=== PATIENT | male | born 1990 | race Caucasian/White ===

== ENCOUNTER 2017-06-21 17:30 | Emergency (ER) | payer BC ==
[~2017-06-21] VITALS: Ht 182.9 cm; Wt 107.7 kg
[2017-06-21 17:38] VITALS: TEMP 97.7
[2017-06-21 18:26] LABS: BASO # 0.1 (0.0-0.2); BASO % 0.8 % (0.0-2.0); EOS # 0.4 (0.0-0.7); EOS % 3.5 % (0-4.0); GRAN # 8.6 (1.4-6.5); GRAN % 70.6 % (42.2-75.2); HEMATOCRIT 42.2 % (42.0-52.0); HEMOGLOBIN 14.4 g/dl (13.5-18.0); LYMPH # 2.2 (1.2-3.4); LYMPH % 17.8 % (20.0-51.0); MEAN CELL VOLUME 87 fl (80.0-100.0); MEAN CORPUSCULAR HEMOGLOBIN 30 pg (27.0-31.0); MEAN CORPUSCULAR HGB CONC 34 g/dl (33.0-37.0); MEAN PLATELET VOLUME 10.6 fl (7.4-10.4); MONO # 0.8 (0.1-0.6); MONO % 6.8 % (1.7-9.3); PLATELET COUNT 306 K/mm3 (130-400); RED BLOOD COUNT 4.87 M/mm3 (4.20-5.60); WHITE BLOOD COUNT 12.1 K/mm3 (4.8-10.8)
[2017-06-21 19:37] LABS: ADJUSTED CALCIUM 9.2 mg/dL (8.4-10.2); ALBUMIN 4.5 gm/dL (3.5-5.0); BILIRUBIN,TOTAL 0.4 mg/dL (0.0-1.0); C-REACTIVE PROTEIN 1.3 mg/dL (0.0-0.9); CALCIUM 9.6 mg/dL (8.4-10.2); CREATININE, serum 0.92 mg/dL (0.66-1.25); POTASSIUM 4.8 mmol/L (3.4-5.0); TOTAL PROTEIN 7.5 gm/dL (6.4-8.2)
[2017-06-21 20:03] LABS: COLLECTION METHOD CLEAN CATCH
[2017-06-21 20:09] LABS: MUCOUS Present /lpf; PH 7 (5-8); SQUAMOUS EPITHELIAL 0-2 /hpf; URINE APPEARANCE Hazy; URINE BACTERIA Rare /hpf; URINE BILIRUBIN Negative (NEGATIVE); URINE BLOOD Negative (NEGATIVE); URINE COLOR Yellow; URINE GLUCOSE Negative (NEGATIVE); URINE KETONE 1+ (NEGATIVE); URINE LEUKOCYTE ESTERASE Negative (NEGATIVE); URINE PROTEIN(semi-quant) 1+ (NEGATIVE); URINE RBC 0-2 /hpf; URINE UROBILINOGEN >=4.0 mg/dL (NEGATIVE); URINE WBC 0-2 /hpf
[2017-06-21] MEDS ORDERED: NORCO 325 MG-51 TAB PO (21:10)
[2017-06-21 21:51] VITALS: BP 128/89; PULSE 88
== END 2017-06-21 21:25 | disposition home or self-care (01) ==
LOC: COL.ER 17:30 → EDSEX 17:49 → COL.ER 21:25
PROVIDERS: Emergency Medicine; Nurse Practitioner
DX: K40.90 Unilateral inguinal hernia, without obstruction or gangrene, not specified as recurrent (principal)
CPT/HCPCS: J1170; J2270; J2405; J7030; Q9967

== ENCOUNTER 2017-10-04 01:44 | Emergency (ER) | payer OTHER ==
[~2017-10-04] VITALS: Ht 182.9 cm; Wt 109.1 kg
[~2017-10-04 01:44] MED LIST: NORCO 325 MG-51 TAB PO
[2017-10-04 01:56] VITALS: TEMP 98.6
[2017-10-04] MEDS ORDERED: ALDACTONE50 MG PO (02:09)
[2017-10-04] MEDS ORDERED: ESTRACE2 MG PO (02:10)
[2017-10-04 03:05] LABS: BILIRUBIN,TOTAL 0.3 mg/dL (0.0-1.0); CALCIUM 9.3 mg/dL (8.4-10.2); CREATININE, serum 0.94 mg/dL (0.66-1.25); POTASSIUM 3.8 mmol/L (3.4-5.0); TOTAL PROTEIN 7.5 gm/dL (6.4-8.2)
[2017-10-04 03:08] LABS: C-REACTIVE PROTEIN 0.5 mg/dL (0.0-0.9)
[2017-10-04 03:26] LABS: COLLECTION METHOD CLEAN CATCH
[2017-10-04 03:31] LABS: MUCOUS Present /lpf; PH 5 (5-8); URINE APPEARANCE Hazy; URINE BACTERIA None Seen /hpf; URINE BILIRUBIN Negative (NEGATIVE); URINE BLOOD Negative (NEGATIVE); URINE COLOR Yellow; URINE GLUCOSE Negative (NEGATIVE); URINE KETONE Trace (NEGATIVE); URINE LEUKOCYTE ESTERASE Negative (NEGATIVE); URINE NITRATE Negative (NEGATIVE); URINE PROTEIN(semi-quant) Negative (NEGATIVE); URINE RBC 0-2 /hpf
[2017-10-04 03:38] LABS: BASO # 0.1 (0.0-0.2); BASO % 0.6 % (0.0-2.0); EOS # 0.2 (0.0-0.7); EOS % 1.5 % (0-4.0); GRAN # 8.1 (1.4-6.5); GRAN % 71.5 % (42.2-75.2); HEMATOCRIT 37.6 % (42.0-52.0); HEMOGLOBIN 13.1 g/dl (13.5-18.0); LYMPH # 2.3 (1.2-3.4); LYMPH % 20.4 % (20.0-51.0); MEAN CELL VOLUME 84 fl (80.0-100.0); MEAN CORPUSCULAR HEMOGLOBIN 29 pg (27.0-31.0); MEAN CORPUSCULAR HGB CONC 35 g/dl (33.0-37.0); MEAN PLATELET VOLUME 9.8 fl (7.4-10.4); MONO # 0.6 (0.1-0.6); MONO % 5.6 % (1.7-9.3); PLATELET COUNT 318 K/mm3 (130-400); RED BLOOD COUNT 4.49 M/mm3 (4.20-5.60); REDCELL DISTRIBUTION WIDTH-CV 11.5 % (11.5-14.5)
[2017-10-04 04:30] VITALS: BP 121/75; PULSE 61
== END 2017-10-04 04:30 | disposition home or self-care (01) ==
LOC: COL.ER 01:44
PROVIDERS: Emergency Medicine
DX: R10.33 Periumbilical pain (principal)
CPT/HCPCS: J1885; J2405; J7030; Q9967

== ENCOUNTER → 2017-10-22 | Outpatient (CLI) | payer OTHER ==
[~2017-10-22] MED LIST changes: +ALDACTONE50 MG PO; +ESTRACE2 MG PO
== END ==
LOC: COL.RAD 08:53
DX: R10.33 Periumbilical pain (principal)

== ENCOUNTER 2018-07-15 05:18 | Emergency (ER) | payer OTHER ==
[~2018-07-15] VITALS: Ht 182.9 cm; Wt 115.9 kg
[2018-07-15 05:21] VITALS: TEMP 97.5
[2018-07-15 05:43] LABS: BASO # 0.1 (0.0-0.2); BASO % 0.7 % (0.0-2.0); EOS # 0.2 (0.0-0.7); EOS % 1.9 % (0-4.0); GRAN # 6.7 (1.4-6.5); GRAN % 59.7 % (42.2-75.2); HEMATOCRIT 39.8 % (42.0-52.0); HEMOGLOBIN 13.7 g/dl (13.5-18.0); LYMPH # 3.4 (1.2-3.4); LYMPH % 30.2 % (20.0-51.0); MEAN CELL VOLUME 85 fl (80.0-100.0); MEAN CORPUSCULAR HEMOGLOBIN 29 pg (27.0-31.0); MEAN CORPUSCULAR HGB CONC 34 g/dl (33.0-37.0); MEAN PLATELET VOLUME 9.6 fl (7.4-10.4); MONO # 0.8 (0.1-0.6); MONO % 7.2 % (1.7-9.3); PLATELET COUNT 314 K/mm3 (130-400); RED BLOOD COUNT 4.71 M/mm3 (4.20-5.60); REDCELL DISTRIBUTION WIDTH-CV 11.5 % (11.5-14.5)
[2018-07-15 05:49] LABS: ALBUMIN 4.2 gm/dL (3.5-5.0); BILIRUBIN,TOTAL 0.4 mg/dL (0.0-1.0); CALCIUM 9.3 mg/dL (8.4-10.2); CREATININE, serum 0.91 mg/dL (0.66-1.25); TOTAL PROTEIN 7.5 gm/dL (6.4-8.2)
[2018-07-15 06:51] LABS: COLLECTION METHOD CLEAN CATCH
[2018-07-15 06:57] LABS: MUCOUS Present /lpf; PH 5 (5-8); URINE APPEARANCE Clear; URINE BACTERIA None Seen /hpf; URINE BILIRUBIN Negative (NEGATIVE); URINE BLOOD 2+ (NEGATIVE); URINE COLOR Yellow; URINE GLUCOSE Negative (NEGATIVE); URINE KETONE Trace (NEGATIVE); URINE LEUKOCYTE ESTERASE Negative (NEGATIVE); URINE NITRATE Negative (NEGATIVE); URINE PROTEIN(semi-quant) Negative (NEGATIVE); URINE RBC 0-2 /hpf; URINE UROBILINOGEN Negative (NEGATIVE)
[2018-07-15 07:15] VITALS: BP 129/84; PULSE 52
[2018-07-16] MEDS ORDERED: NORCO 325 MG-51 TAB PO (08:42)
== END 2018-07-15 07:16 | disposition home or self-care (01) ==
LOC: COL.ER 05:18
PROVIDERS: Emergency Medicine
DX: K80.50 Calculus of bile duct without cholangitis or cholecystitis without obstruction (principal)
CPT/HCPCS: J2765; J3010; J7030

== ENCOUNTER 2018-07-15 12:26 | Day surgery (SDC) | payer OTHER ==
[~2018-07-15] VITALS: Ht 182.9 cm; Wt 115.9 kg
[2018-07-15] VITALS (10 sets, daily range): BP systolic 117–135; BP diastolic 62–80; PULSE 68–100; TEMP 97.3–98.3
[2018-07-15 14:34] LABS: BASO % 0.3 % (0.0-2.0); GRAN # 14.1 (1.4-6.5); GRAN % 90.3 % (42.2-75.2); HEMATOCRIT 40.3 % (42.0-52.0); HEMOGLOBIN 14.3 g/dl (13.5-18.0); LYMPH % 6.3 % (20.0-51.0); MEAN CELL VOLUME 83 fl (80.0-100.0); MEAN CORPUSCULAR HEMOGLOBIN 29 pg (27.0-31.0); MEAN CORPUSCULAR HGB CONC 36 g/dl (33.0-37.0); MEAN PLATELET VOLUME 9.5 fl (7.4-10.4); MONO # 0.4 (0.1-0.6); MONO % 2.7 % (1.7-9.3); PLATELET COUNT 327 K/mm3 (130-400); RED BLOOD COUNT 4.88 M/mm3 (4.20-5.60); REDCELL DISTRIBUTION WIDTH-CV 11.6 % (11.5-14.5)
[2018-07-15 14:48] LABS: ALBUMIN 4.5 gm/dL (3.5-5.0); BILIRUBIN,TOTAL 0.3 mg/dL (0.0-1.0); C-REACTIVE PROTEIN 0.7 mg/dL (0.0-0.9); CALCIUM 9.8 mg/dL (8.4-10.2); CREATININE, serum 0.81 mg/dL (0.66-1.25); TOTAL PROTEIN 7.9 gm/dL (6.4-8.2)
--- NOTE | 2018-07-15 18:40 | NUR ---
report received from ED nurse given to Marianne RN, patient in surgery at this time
--- NOTE | 2018-07-15 19:10 | NUR ---
Received from PACU per bed, alert and oriented patient. Has lap sites x3 to abdomen, dry/intact bandaids. Denies pain or nausea at this time. IV site to right upper arm with LR infusing without redness or swelling.
--- NOTE | 2018-07-15 21:30 | NUR ---
Patient up to void, does without problem. Tries pudding and juice. Denies need for pain meds at this time.
--- NOTE | 2018-07-15 23:00 | NUR ---
Patient in bed, IV site capped, taking oral fluids without problem. Denies pain or nausea at this time.
--- NOTE | 2018-07-16 05:38 | NUR ---
Patient reporting pain 2/10, medicated with [place] 5/325mg 1 tab po now. Offers no other concerns at this time.
--- NOTE | 2018-07-16 08:00 | NUR ---
PATIENT IS RESTING IN BED THIS MORNING. PATIENT IS A&O. VSS. BOWEL SOUNDS ACTIVE ALL FOUR QUADRANTS. PATIENT TOLERATING FOOD & LIQUIDS WITHOUT ANY COMPLAINTS OF N/V. ABDOMINAL LAP SITES X3 DRESSED WITH BANDAIDS AND ARE CD&I. POSITIVE PEDAL PULSES EQUAL BILATERALLY. RIGHT AC TO INT. CALL LIGHT WITHIN REACH. PATIENT DENIES ANY NEEDS AT THIS TIME.
[2018-07-16] MEDS ORDERED: NORCO 325 MG-51 TAB PO (08:42)
[2018-07-16 08:57] VITALS: BP 113/64; PULSE 72; TEMP 97.8
--- NOTE | 2018-07-16 09:36 | NUR ---
Initial visit; Patient and family thanked [employer] for looking in on them and offering God's blessings.
--- NOTE | 2018-07-16 10:00 | NUR ---
PATIENT'S RIGHT AC INT DC'D PER PENDING DISCHARGE. PATIENT TOLERATED WELL. NO OTHER NEEDS AT THIS TIME.
--- NOTE | 2018-07-16 11:30 | NUR ---
DISCHARGE INSTRUCTIONS REVIEWED WITH PATIENT AND . ALL QUESTIONS ANSWERED. PATIENT AMBULATED TO PERSONAL VEHICLE WITH SURGICAL STAFF. PATIENT DISCHARGED.
== END 2018-07-16 11:30 | disposition home or self-care (01) ==
LOC: COL.ER 12:26 → SDCO 12:28 → COL.ER 16:51 → SURG 16:51 → SDCO 07-16 11:30
PROVIDERS: Nurse Practitioner
DX: K80.12 Calculus of gallbladder with acute and chronic cholecystitis without obstruction (principal); K82.1 Hydrops of gallbladder; E66.9 Obesity, unspecified; Z79.890 Hormone replacement therapy
CPT/HCPCS: J0690; J1100; J1170; J1885; J2270; J2405; J2704; J2710; J2765; J3010; J7030; J7120